=== PATIENT | female | born 1965 | race Caucasian/White ===

== ENCOUNTER → 2016-07-23 | Outpatient (CLI) | payer BC | LOC: CIMAGING 10:43 | PROVIDERS: ATTEND Family Medicine | DX: J98.8 Other specified respiratory disorders (principal); I10 Essential (primary) hypertension; E11.9 Type 2 diabetes mellitus without complications; Z79.4 Long term (current) use of insulin | CPT/HCPCS: 71020-PO ==

== ENCOUNTER 2017-03-05 09:06 | Emergency (ER) | payer OTHER ==
[2017-03-05 09:18] VITALS: RESP 18; TEMP 98
[2017-03-05] MEDS ORDERED: HYDROCODONE/APAP 5/325 TAB PO ONE (09:20)
[2017-03-05] MEDS ORDERED: IBUPROFEN 800 MG TAB PO ONE (09:20)
--- NOTE | 2017-03-05 09:42 | EDPHY ---
H & P Stated Complaint: fall this am c/o butt/lower back pain Time Seen by Provider: 03/05/17 09:11 HPI/ROS: Chief Complaint: Fall, back pain HPI: 51-year-old woman had a mechanical slip and fall while walking down her back status. She is felt to steps and landed on her buttocks. She had the onset of bilateral lower back pain. She did not hit her head. No loss of conscious. No numbness or weakness. She is ambulating with discomfort. No prior back injuries. No difficulty urinating. ROS: 10 point Review of Systems is negative except as noted in the HPI. PMH: Type 1 diabetes, hyperlipidemia Social History: No smoking, no alcohol, no recreational drug use Family History: non-contributory Physical Exam: Gen: Awake, Alert, No Distress HEENT: Nose: no rhinorrhea Eyes: PERRLA, EOMI Mouth: Moist mucosa Neck: Supple, no JVD Chest: nontender, lungs clear to auscultation Heart: S1, S2 normal, no murmur Abd: Soft, non-tender, no guarding Back: no CVA tenderness, mild midline tenderness with worse bilateral paraspinal right greater than left soft tissue tenderness. No coccyx tenderness. Pelvis: Stable to AP and lateral compression. Nontender Ext: no edema, non-tender Skin: no rash Neuro: CN II-XII intact, Sensation grossly intact, Strength 5/5 in bilateral upper and lower extremities - Personal History LMP (Females 10-55): Post Menopausal Current Tetanus Diphtheria and Acellular Pertussis (TDAP): Yes - Social History Smoking Status: Never smoked Constitutional: Initial Vital Signs Temperature (C) 36.6 C 03/05/17 09:15 Heart Rate 66 03/05/17 09:15 Respiratory Rate 18 03/05/17 09:15 Blood Pressure 110/62 03/05/17 09:15 O2 Sat (%) 94 03/05/17 09:15 O2 Delivery Mode Room Air Allergies/Adverse Reactions: Insulins Allergy (Verified 03/05/17 09:14) Home Medications: Medication Instructions Recorded Hydrocodone/Acetaminophen 1 - 2 each PO Q4-6PRN PRN #10 03/05/17 [Hydrocodon-Acetaminophen 5-325] tablet Insulin NPH Human 03/05/17 Vasotec 5 MG (*) 03/05/17 Medical Decision Making - Diagnostics Imaging Results: Imaging Impressions Lumbar Spine X-Ray 03/05/17 09:20 Impression: Probably acute compression deformity of the upper endplate of L1. Imaging: I viewed and interpreted images myself ED Course/Re-evaluation: L-spine x-rays reveal a upper endplate fracture of L1. Patient's pain is controlled with ibuprofen and Vicodin. She is ambulating unassisted. Will discharge with follow-up as an outpatient, return for any concerns. - Data Points Medications Given: Discontinued Medications Hydrocodone Bitart/Acetaminophen ([place] 5/325) 1 tab PO EDNOW ONE Stop: 03/05/17 09:21 Last Admin: 03/05/17 09:27 Dose: 1 tab Ibuprofen (Motrin) 800 mg PO EDNOW ONE Stop: 03/05/17 09:21 Last Admin: 03/05/17 09:27 Dose: 800 mg Departure - Departure Disposition: Home, Routine, Self-Care Clinical Impression: Lumbar compression fracture Condition: Good Instructions: Thoracolumbar Fracture (ED) Additional Instructions: Take ibuprofen, 600 mg, 3 times a day. You may also take acetaminophen, 1000 mg every 6 hours. For breakthrough pain or pain at night you may take Vicodin in place of the acetaminophen. Make sure to remain active. Did do not lay in bed or sit in a chair for long periods. It is important to remain active and keep your back moving in order to improve. Please see the attached back exercise instructions. Follow up with a orthopedist in 3-4 days for further evaluation. Referrals: Lopez Rocha DO [Primary Care Provider] - As per Instructions Erlin Padilla MD [Medical Doctor] - As per Instructions Prescriptions: Hydrocodone/Acetaminophen [Hydrocodon-Acetaminophen 5-325] 1 - 2 each PO Q4- 6PRN PRN #10 tablet PRN Reason: Pain, Severe
[2017-03-05 10:49] VITALS: BP 124/62; PULSE 78; O2SAT 96
== END 2017-03-05 10:48 | disposition home or self-care (01) ==
LOC: CED 09:06
DX: S32.009A Unspecified fracture of unspecified lumbar vertebra, initial encounter for closed fracture (principal); E10.9 Type 1 diabetes mellitus without complications; W01.0XXA Fall on same level from slipping, tripping and stumbling without subsequent striking against object, initial encounter; Y99.8 Other external cause status; Y93.01 Activity, walking, marching and hiking
CPT/HCPCS: 72100-PO

== ENCOUNTER → 2018-02-16 | Outpatient (CLI) | payer OTHER | LOC: CIMAGING 09:02 | PROVIDERS: ATTEND Family Medicine | DX: M25.561 Pain in right knee (principal) | CPT/HCPCS: 73562-PO ==